=== PATIENT | female | born 1975 | race Caucasian/White ===

== ENCOUNTER → 2024-03-01 | Outpatient (CLI) | payer BC | END | disposition home or self-care (01) | LOC: MAMMO 13:57 | PROVIDERS: ATTEND Family Medicine | DX: N64.4 Mastodynia (principal) | CPT/HCPCS: 76641; 77062; 77066; G0279 ==

== ENCOUNTER → 2025-08-13 | Outpatient (CLI) | payer BC | END | disposition home or self-care (01) | LOC: MAMMO 13:03 | PROVIDERS: ATTEND Family Medicine | DX: Z12.31 Encounter for screening mammogram for malignant neoplasm of breast (principal); N63.20 Unspecified lump in the left breast, unspecified quadrant; R92.323 Mammographic fibroglandular density, bilateral breasts; R92.1 Mammographic calcification found on diagnostic imaging of breast | CPT/HCPCS: 77063; 77067 ==